=== PATIENT | female | born 2000 | race Hispanic/Latino ===

== ENCOUNTER 2024-08-17 09:34 | Outpatient (CLI) | payer OTHER | END 2024-08-17 09:35 | disposition home or self-care (01) | LOC: BICULT 09:34 | PROVIDERS: ATTEND Family Medicine | DX: Z34.02 Encounter for supervision of normal first pregnancy, second trimester (principal); Z3A.22 22 weeks gestation of pregnancy | CPT/HCPCS: 76805 ==